=== PATIENT | female | born 1940 | race Caucasian/White ===

== ENCOUNTER 2017-01-21 22:22 | Emergency (ER) | payer MEDICARE ==
[2017-01-21 22:32] VITALS: BP 149/79
[2017-01-21] MEDS ORDERED: Tetan/Diph/Pertus SYR(Tdap)* 0.5 ML SYR(BOOSTRIX) use SYR IM ONE (22:55)
--- NOTE | 2017-01-22 00:24 | ED ---
Lower Extremity - HPI Summary HPI Summary: Patient arrives to ED after dropping laptop on foot and experiencing small abrasion to lateral side of second toenail and a subungual hematoma of the middle toe of L foot. She comes today because she has not head a tetanus shot for over 20 years and was concerned of infection. She denies pain. Pulses intact bilaterally. Otherwise healthy. Aspirin 81mg daily. - History of Current Complaint Chief Complaint: EDExtremityLower Stated Complaint: FOOT INJURY Time Seen by Provider: 01/21/17 22:56 Hx Obtained From: Patient Mechanism Of Injury: Blunt Trauma Onset of Pain: Immediate Onset/Duration: Minutes Severity Initially: Mild Severity Currently: None Pain Intensity: 0 Pain Scale Used: 0-10 Numeric Location: Is Discrete @ - 2nd and 3rd toe of left foot Associated Signs And Symptoms: Positive: Swelling, Redness, Bruising Alleviating Factor(s): Rest Able to Bear Weight: Yes - Allergies/Home Medications Allergies/Adverse Reactions: Allergies Allergy/AdvReac Type Severity Reaction Status Date / Time Amoxicillin Allergy Hives Verified 04/14/15 08:49 ADHESIVE TAPE AND BANDAIDS Allergy Rash Uncoded 04/14/15 08:49 PMH/Surg Hx/FS Hx/Imm Hx Previously Healthy: Yes Musculoskeletal History: Reports: Hx Arthritis - FINGER Sensory History: Reports: Hx Cataracts - BILATERAL, Hx Contacts or Glasses - GLASSES Denies: Hx Hearing Aid Opthamlomology History: Reports: Hx Cataracts - BILATERAL, Hx Contacts or Glasses - GLASSES - Cancer History Hx Chemotherapy: No Hx Radiation Therapy: Yes - ON NOSE - Surgical History Surgery Procedure, Year, and Place: TONSILLECTOMY A CHILD. APPENDECTOMY AGE 9 OR 10. RIGHT BREAST BIOPSY AND CYST REMOVED, [place], [place]. SQUAMOUS CELL CARCINOMA EXCISION FROM NOSE Hx Anesthesia Reactions: No Infectious Disease History: No Infectious Disease History: Denies: Traveled Outside the [place] in Last 30 Days - Social History Occupation: Retired Lives: Alone Alcohol Use: None Hx Substance Use: No Substance Use Type: Reports: None Hx Tobacco Use: Yes Smoking Status (MU): Former Smoker Have You Smoked in the Last Year: No Review of Systems Constitutional: Negative Cardiovascular: Negative Respiratory: Negative Musculoskeletal: Negative Positive: Other - small laceration of second toe of left foot and subungual hematoma of 3rd toe of L foot Neurological: Negative Psychological: Normal All Other Systems Reviewed And Are Negative: Yes Physical Exam Triage Information Reviewed: Yes Vital Signs On Initial Exam: Initial Vitals Temp Pulse Resp BP Pulse Ox 97.0 F 100 14 149/79 99 01/21/17 22:26 01/21/17 22:26 01/21/17 22:26 01/21/17 22:26 01/21/17 22:26 Vital Signs Reviewed: Yes Appearance: Positive: Well-Appearing, No Pain Distress, Well-Nourished Skin: Positive: Warm, Skin Color Reflects Adequate Perfusion, Other - small abrasion to lateral side of second toenail and a subungual hematoma of the middle toe of L foot. Head/Face: Positive: Normal Head/Face Inspection Eyes: Positive: Normal, EOMI, AME Neck: Positive: Supple Respiratory/Lung Sounds: Positive: Clear to Auscultation Cardiovascular: Positive: Normal Musculoskeletal: Positive: Strength/ROM Intact, Limited @ - d/t pain of 3rd toe of left foot - unable to flex Neurological: Positive: Sensory/Motor Intact, Alert, Oriented to Person Place, Time, Speech Normal Psychiatric: Positive: Normal AVPU Assessment: Alert - Erica Coma Scale Best Eye Response: 4 - Spontaneous Best Motor Response: 6 - Obeys Commands Best Verbal Response: 5 - Oriented Diagnostics - Vital Signs Vital Signs Temp Pulse Resp BP Pulse Ox 01/21/17 22:26 97.0 F 100 14 149/79 99 - Laboratory Lab Statement: Any lab studies that have been ordered have been reviewed, and results considered in the medical decision making process. Lower Extremity Course/Dx - Course Course Of Treatment: Foot and toes were cleaned and irrigated. Xray negative for fx. Wrapped toes with gauze and ariella taped. Patient tolerated well. Nail of 3rd toe of L foot with sunungual hematoma and nail avulsion. Patient prefers to have nail fall off organically. Provider agrees. No need for trephination. Tetanus updated. - Diagnoses Differential Diagnosis/HQI/PQRI: Positive: Contusion, Infection, Puncture Wound , Subungual Hematoma Provider Diagnoses: Nail avulsion of toe Discharge - Discharge Plan Condition: Stable Disposition: HOME Patient Education Materials: Toenail/Fingernail Removal (ED) Referrals: Kike Herrera MD [Primary Care Provider] - Additional Instructions: If you develop fever, worsening pain, redness, swelling or drainage from the area, come back to ED.
--- NOTE | 2017-01-22 06:20 | RAD ---
INDICATION: Left foot injury COMPARISON: None TECHNIQUE: AP, lateral, and oblique views were obtained. FINDINGS: The bony structures, joint spaces, and soft tissues are normal for age. IMPRESSION: NO FRACTURE OR FOREIGN BODY
== END 2017-01-22 00:16 | disposition home or self-care (01) ==
LOC: ED 22:22
DX: S91.205A Unspecified open wound of left lesser toe(s) with damage to nail, initial encounter (principal); W20.8XXA Other cause of strike by thrown, projected or falling object, initial encounter; Y92.9 Unspecified place or not applicable; Z79.82 Long term (current) use of aspirin; Z88.0 Allergy status to penicillin; Z23 Encounter for immunization
CPT/HCPCS: 90471; 90715; 99282